=== PATIENT | female | born 1960 | race Caucasian/White ===

== ENCOUNTER → 2017-03-24 | Outpatient (CLI) | payer SELFPAY ==
[~2017-03-24] MED LIST: CALCIUM + VITA1 EACH PO; EFFEXOR XR75 MG PO; MUCINEX600 MG PO; PROVENTIL HFA6.7 GM IH; SYNTHROID150 MCG PO; ZITHROMAX500 MG PO; [UNRECOGNIZED DRUG - OTHER] PO
== END | disposition home or self-care (01) ==
LOC: RAD.S 13:30
DX: K46.9 Unspecified abdominal hernia without obstruction or gangrene (principal)